=== PATIENT | male | born 1950 | race Caucasian/White ===

== ENCOUNTER 2016-12-26 09:14 | Emergency (ER) | payer OTHER ==
[2016-12-26] MEDS ORDERED: MINOCIN PO (09:27)
[2016-12-26] MEDS ORDERED: METRONIDAZOLE45 G1 TP (09:27)
[2016-12-26] MEDS ORDERED: ZOCOR20 M1 PO (09:28)
[2016-12-26] MEDS ORDERED: FLOMAX0.4 M1 PO (09:28)
[2016-12-26] MEDS ORDERED: LOPERAMIDE2 M2 PO (09:28)
[2016-12-26] MEDS ORDERED: PROTONIX40 M2 PO (09:28)
[2016-12-26] MEDS ORDERED: ASPIRIN EC81 MG PO (09:28)
[2016-12-26] MEDS ORDERED: OXYBUTYNIN CHLOR5 M2 PO (09:28)
[2016-12-26] MEDS ORDERED: MULTIVITAMINS1 EAC6 PO (09:29)
[2016-12-26 09:53] LABS: BASO % 0.9 % (0-2); BASO ABSOLUTE COUNT 0.1 tho/cmm (0.0-0.2); EOS % 2.9 % (0-7); EOSINOPHIL ABSOLUTE COUNT 0.2 tho/cmm (0.0-0.7); HCT-HEMATOCRIT 37.2 % (36.0-53.5); HGB-HEMOGLOBIN 12.8 gm/dl (13.5-17.0); IMMATURE GRANULOCYTES ABSOLUTE 0.02 tho/cmm (0-0.03); IMMATURE GRANULOCYTES PERCENT 0.3 % (0-0.3); LYMPH % 39.2 % (20-45); LYMPH ABSOLUTE COUNT 2.6 tho/cmm (0.8-4.5); MCHC MEAN CORPUSCULAR HGB CONC 34.4 % (32.0-36.0); MCV (MEAN CELL VOLUME) 90.1 fl (82.0-96.0); MEAN PLATELET VOLUME 10.1 cmc (9.4-12.4); MONO % 10.8 % (0-12); MONOCYTE ABSOLUTE COUNT 0.7 tho/cmm (0.0-1.2); NEUTROPHILS % 45.9 % (40-80); PLATELET COUNT 247 tho/cmm (150-450); RED BLOOD COUNT 4.13 mil/cmm (4.40-5.70); RED CELL DISTRIBUTION WIDTH 12.9 % (12.4-16.4); WHITE BLOOD COUNT 6.6 tho/cmm (4.0-10.0)
[2016-12-26 10:06] LABS: ANION GAP 12 mmol/L (0-20); BLOOD UREA NITROGEN 12 mg/dl (6-24); CALCIUM 8.7 mg/dl (8.5-10.5); CARBON DIOXIDE-VENOUS 26 mmol/L (22-32); CHLORIDE 107 mmol/l (96-110); CREATININE 0.68 mg/dl (0.60-1.30); GLUCOSE 90 mg/dL (70-110); POTASSIUM 4.2 mmol/L (3.7-5.1); SODIUM 141 mmol/L (135-145); eGFR VALUE FOR BLACK >90 mL/Min
[2016-12-26] MEDS ORDERED: TUMS200 MG PO (10:12)
[2016-12-26] MEDS ORDERED: FISH OIL 11000 MG/CA PO (10:12)
[2016-12-26] MEDS ORDERED: CO Q-10100 M2 PO (10:13)
[2016-12-26] MEDS ORDERED: CINNAMON500 M1 PO (10:17)
== END 2016-12-26 11:19 ==
LOC: EDMED 09:14
PROVIDERS: Family Medicine
DX: R07.89 Other chest pain (principal); E78.5 Hyperlipidemia, unspecified; K21.9 Gastro-esophageal reflux disease without esophagitis; Z87.891 Personal history of nicotine dependence; Z79.82 Long term (current) use of aspirin; Z79.899 Other long term (current) drug therapy